=== PATIENT | female | born 1950 | race Caucasian/White ===

== ENCOUNTER 2017-01-05 17:53 | Emergency (ER) | payer MEDICARE ==
[~2017-01-05] VITALS: Ht 165.1 cm; Wt 71.2 kg
[2017-01-05 18:45] VITALS: BP 154/78
[2017-01-05] MEDS ORDERED: LIDOCAINE 1% / SOD BICARB 8.4% 20 ML VIAL. IJ ONE (19:15)
[2017-01-05] MEDS ORDERED: DIPHTH,PERTUSS(ACELL),TET TOX 0.5 ML DISP.SYRIN. VAX IM ONE (19:15)
[2017-01-05] MEDS ORDERED: HYDR-971 PO (20:23)
--- NOTE | 2017-01-05 20:24 | PHYS DOC ---
Past Medical History Past Medical History: Arthritis Past Surgical History: Tonsillectomy, Tubal ligation Additional Past Surgical Histo: Nasal, Neck Alcohol Use: Rarely Drug Use: None Adult General Chief Complaint Chief Complaint: LACERATION/AVULSION HPI HPI Patient is a 66 year old female presents the emergency room today with complaint of a laceration to her left index finger while she was washing a glass bowl. Patient states of the glass bowl did not shatter. She denies any glass flying up into her eyes are striking her face. Patient cannot remember the last time she had a tetanus shot. Review of Systems Review of Systems Constitutional: Denies fever or chills [] Eyes: Denies change in visual acuity, redness, or eye pain [] HENT: Denies nasal congestion or sore throat [] Respiratory: Denies cough or shortness of breath [] Cardiovascular: No additional information not addressed in HPI [] GI: Denies abdominal pain, nausea, vomiting, bloody stools or diarrhea [] : Denies dysuria or hematuria [] Musculoskeletal: Denies back pain or joint pain [] Integument: Denies rash or skin lesions [] Neurologic: Denies headache, focal weakness or sensory changes [] Endocrine: Denies polyuria or polydipsia [] Current Medications Current Medications Current Medications Medications (Trade) Dose Ordered Sig/Dionne Start Time Stop Time Status Last Admin Dose Admin Diphtheria/ Tetanus/Acell Pertussis (Boostrix) 0.5 ml ONCE ONCE 01/05/17 19:15 01/05/17 19:20 DC 01/05/17 19:25 0.5 ML Lidocaine/Sodium Bicarbonate (Buffered Lidocaine 1%) 20 ml 1X ONCE 01/05/17 19:15 01/05/17 19:20 DC 01/05/17 19:24 20 ML Allergies Allergies Allergies Coded Allergies Type Severity Reaction Last Updated Verified No Known Drug Allergies 01/05/17 No Physical Exam Physical Exam Constitutional: Well developed, well nourished, no acute distress, non-toxic appearance. [] HENT: Normocephalic, atraumatic, bilateral external ears normal, oropharynx moist, no oral exudates, nose normal. [] Eyes: PERRLA, EOMI, conjunctiva normal, no discharge. [] Neck: Normal range of motion, no tenderness, supple, no stridor. [] Cardiovascular:Heart rate regular rhythm, no murmur [] Lungs & Thorax: Bilateral breath sounds clear to auscultation [] Abdomen: Bowel sounds normal, soft, no tenderness, no masses, no pulsatile masses. [] Skin: Warm, dry, no erythema, no rash. [] Back: No tenderness, no CVA tenderness. [] Extremities: Left index finger with an approximate 3 cm laceration to the dorsum of the first phalanx. The laceration does extend in the subcutaneous tissue. Extensor tendons are not visualized and the flap. Patient is able to flex and extend at both the PIPJ and DIPJ without difficulty. Fingers neurovascularly intact with capillary refill less than 2 seconds. Neurologic: Alert and oriented X 3, normal motor function, normal sensory function, no focal deficits noted. [] Psychologic: Affect normal, judgement normal, mood normal. [] Current Patient Data Vital Signs Vital Signs Date Time Temp Pulse Resp B/P Pulse Ox O2 Delivery O2 Flow Rate FiO2 01/05/17 18:45 98.7 71 16 97 Room Air 98.7 EKG EKG [] Radiology/Procedures Radiology/Procedures Procedure note: 3 similar laceration to the left index finger was anesthetized with buffered 1% lidocaine. Scrubbed with Betadine solution and rinsed with saline. Laceration flap was everted. The laceration does not extend past the subcutaneous tissue. Extensor tendons were visualized. No foreign bodies were in the wound. Wound margins were approximated utilizing 5-0 nylon in a simple interrupted fashion of Singler closure for total of 6 stitches. Patient tolerated the procedure well. This procedure was performed by BARBER Michelle student, to my supervision. Course & Med Decision Making Course & Med Decision Making Pertinent Labs and Imaging studies reviewed. (See chart for details) [] Dragon Disclaimer Dragon Disclaimer This electronic medical record was generated, in whole or in part, using a voice recognition dictation system. Departure Departure Impression: Primary Impression: Laceration Disposition: 01 HOME, SELF-CARE Condition: IMPROVED Referrals: MIKALA CROCKER (PCP) Patient Instructions: Diphtheria Toxoid; Tetanus Toxoid Adsorbed, DT, Td, Laceration Care, Adult, [id number] Additional Instructions: 1. Stitches need to be removed in 7-10 days. 2. Keep a dressing over top of the laceration site for the next 2-3 days. Patient to change it daily. Your okay to wash your hands. Just do not soaking your hands in water. 3. Review the discharge instructions provided for self-care and reasons to return to the emergency department. 4. Contact her primary care doctor's office Saturday to schedule follow-up appointment for wound evaluation and stitch removal. Scripts Hydrocodone/Apap 5-325 ([place] 5-325 Tablet)1 Each Tablet1 Tab PO PRN Q6HRS PRN PAIN #10 TAB Prov:PEREZ PAREKH 01/05/17 PEREZ PAREKH Jan 05, 2017 20:23
== END 2017-01-05 20:30 | disposition home or self-care (01) ==
LOC: ER 17:53
DX: S61.211A Laceration without foreign body of left index finger without damage to nail, initial encounter (principal); M19.90 Unspecified osteoarthritis, unspecified site; W26.8XXA Contact with other sharp object(s), not elsewhere classified, initial encounter; Y93.89 Activity, other specified; Y92.89 Other specified places as the place of occurrence of the external cause; Y99.8 Other external cause status
CPT/HCPCS: 12002; 90471; 90715; 99283-25

== ENCOUNTER 2017-01-14 10:04 | Emergency (ER) | payer MEDICARE ==
[~2017-01-14] VITALS: Ht 165.1 cm; Wt 71.2 kg
[~2017-01-14 10:04] MED LIST: HYDR-971 PO
[2017-01-14 10:25] VITALS: BP 134/72
--- NOTE | 2017-01-14 10:47 | PHYS DOC ---
Past Medical History Past Medical History: Arthritis Past Surgical History: Tonsillectomy, Tubal ligation Additional Past Surgical Histo: Nasal, Neck Alcohol Use: Rarely Drug Use: None Adult General Chief Complaint Chief Complaint: SUTURE/STAPLE REMOVAL [facility] Patient is a 66 year old male presents emergency department for suture removal. Patient states his sutures placed on January 05. She denies any drainage discharge coming from the site. She has full range of motion of the finger. She does have cap refill that is brisk less than 2 seconds. Patient also denies any fever, chills or nausea vomiting. Review of Systems Review of Systems Constitutional: Denies fever or chills [] Respiratory: Denies cough or shortness of breath [] Cardiovascular: No additional information not addressed in [facility] [] Integument: Denies rash or skin lesions. Patient presents for suture removal Neurologic: Denies headache, focal weakness or sensory changes [] Allergies Allergies Allergies Coded Allergies Type Severity Reaction Last Updated Verified No Known Drug Allergies 01/05/17 No Physical Exam Physical Exam Constitutional: Well developed, well nourished, no acute distress, non-toxic appearance. [] HENT: Normocephalic, atraumatic, bilateral external ears normal, oropharynx moist, no oral exudates, nose normal. [] Eyes: PERRLA, EOMI, conjunctiva normal, no discharge. [] Neck: Normal range of motion, no tenderness, supple, no stridor. [] Cardiovascular:Heart rate regular rhythm Lungs & Thorax: no respiratory distress Skin: Warm, dry, no erythema, no rash. Patient with 5 sutures appear to be intact. No redness, drainage or discharge noted around the laceration. Back: No tenderness Extremities: No tenderness, no cyanosis, no clubbing, ROM intact, no edema. [] Neurologic: Alert and oriented X 3, normal motor function, normal sensory function, no focal deficits noted. [] Psychologic: Affect normal, judgement normal, mood normal. [] Current Patient Data Vital Signs Vital Signs Date Time Temp Pulse Resp B/P Pulse Ox O2 Delivery O2 Flow Rate FiO2 01/14/17 10:25 98.2 72 16 97 Room Air 98.2 EKG EKG [] Radiology/Procedures Radiology/Procedures [] Course & Med Decision Making Course & Med Decision Making Pertinent Labs and Imaging studies reviewed. (See chart for details) 5 sutures were removed by nursing staff. Patient was provided with discharge instructions to keep the area clean and dry. Clean the site with soap and water and apply antibiotic ointment. Patient was provided with signs and symptoms of infection: Redness, warmth, tenderness or any yellow/greenish drainage of a come from the site. Patient was instructed that should occur follow-up to primary care physician immediately. Patient be discharged home in stable condition signs and symptoms to return back to emergency department as been provided. [] Dragon Disclaimer Dragon Disclaimer This electronic medical record was generated, in whole or in part, using a voice recognition dictation system. Departure Departure Impression: Primary Impression: Visit for suture removal Disposition: HOME, SELF-CARE Condition: STABLE Referrals: MIKALA CROCKER (PCP) Patient Instructions: Suture Removal-Brief Additional Instructions: Activity as tolerated. Keep the area clean and dry. Clean the site with soap and water and apply antibiotic ointment as needed. Follow-up primary care physician for any signs symptoms of infection such as redness warmth tenderness or any yellow/greenish drainage of a come from the site if this should occur follow-up immediately. Return back to emergency department as needed for sign symptoms of become worse YORDAN VALENZUELA NP Jan 14, 2017 10:47
== END 2017-01-14 10:49 | disposition home or self-care (01) ==
LOC: ER 10:04
DX: S61.219D Laceration without foreign body of unspecified finger without damage to nail, subsequent encounter (principal); M19.90 Unspecified osteoarthritis, unspecified site; W45.8XXA Other foreign body or object entering through skin, initial encounter; Y93.89 Activity, other specified; Y92.89 Other specified places as the place of occurrence of the external cause; Y99.8 Other external cause status
CPT/HCPCS: 99281

== ENCOUNTER 2018-05-15 17:23 | Emergency (ER) | payer MEDICARE ==
[2018-05-15] MEDS: LIDOCAINE WITH 8.4% SOD BICARB 3 ML DISP.SYRIN. INJ (18:54)
== END 2018-05-15 19:41 | disposition home or self-care (01) ==
LOC: ER 17:23
DX: S61.511A Laceration without foreign body of right wrist, initial encounter (principal); W26.8XXA Contact with other sharp object(s), not elsewhere classified, initial encounter; Y93.89 Activity, other specified; Y99.8 Other external cause status; Y92.89 Other specified places as the place of occurrence of the external cause
CPT/HCPCS: 12001; 12002; 99283-25